=== PATIENT | female | born 1985 | race Caucasian/White ===

== ENCOUNTER 2018-07-25 03:23 | Emergency (ER) | payer MEDICAID ==
[~2018-07-25] VITALS: Ht 165.1 cm; Wt 70.3 kg
[2018-07-25 03:32] VITALS: BP 133/77
[2018-07-25] MEDS ORDERED: HYDROCODONE/APAP 5/325MG 1 EACH TABLET ONE (03:50)
[2018-07-25] MEDS ORDERED: HYDROCODONE/APAP 5/325MG 1 EACH TABLET PO ONE (04:00)
== END 2018-07-25 03:57 | disposition home or self-care (01) ==
LOC: ER 03:23
DX: K08.89 Other specified disorders of teeth and supporting structures (principal); Z98.890 Other specified postprocedural states; Z90.89 Acquired absence of other organs